=== PATIENT | female | born 1960 | race African-American/Black ===

== ENCOUNTER 2017-01-29 22:53 | Emergency (ER) | payer OTHER ==
[2017-01-29 23:18] VITALS: BP 99/61; PULSE 110; TEMP 9807; BMI 23.9
--- NOTE | 2017-01-29 23:20 | PDOC ---
History of Present Illness - General History Source: EMS, Longterm Records Exam Limitations: Clinical Condition - History of Present Illness Initial Comments: 01/29/17 23:47 The patient is a 56-year-old female BIB EMS from [facility] with a significant past medical history of MR, COPD, HTN, DIC, CVA with right-sided hemiparesis, dysphagia, aphasia, GI bleed and seizures, who presents to the emergency department with a broken trach and spontaneous respiratory distress onset today. The patient is nonverbal and unable to ambulate on baseline. The history is limited due to the patients condition. Information is obtained from longterm records and EMS. Allergies: NKDA Past Surgical History: Abdominal PEG tube <Tammi Hamilton - Last Filed: 01/29/17 23:47> <Shilpa Shaver - Last Filed: 01/31/17 03:47> - General Chief Complaint: Trach Tube Replacement Stated Complaint: RESPIRATORY DISTRESS Time Seen by Provider: 01/29/17 23:19 Past History <Tammi Hamilton - Last Filed: 01/29/17 23:47> - Past Medical History CVA: Yes (right sided hemiparesis, dysphagia, aphasia) COPD: Yes GI Disorders: Yes (GI bleeding) HTN: Yes HIV: (MENTAL RETARDATION.) Seizures: Yes - Surgical History Abdominal Surgery: Yes (peg tube) - Immunization History Td Vaccination: Yes TDAP Vaccination: Yes Immunization Up to Date: Yes - Psycho/Social/Smoking Cessation Hx Anxiety: No Suicidal Ideation: No Smoking Status: No Smoking History: Unknown if ever smoked Have you smoked in the past 12 months: No Number of Cigarettes Smoked Daily: 0 Cigars Per Day: 0 Information on smoking cessation initiated: No Hx Alcohol Use: No Drug/Substance Use Hx: No Substance Use Type: None Hx Substance Use Treatment: (unknown) <Shilpa Shaver - Last Filed: 01/31/17 03:47> - Past Medical History Allergies/Adverse Reactions: Allergies Allergy/AdvReac Type Severity Reaction Status Date / Time No Known Allergies Allergy Verified 01/29/17 22:57 Home Medications: Ambulatory Orders Aspirin 81 mg GT DAILY 06/03/15 Gabapentin [Neurontin -] 300 mg GT Q8H 06/03/15 Omeprazole [Prilosec (RX)] 40 mg GT DAILY 06/03/15 Prednisone 10 mg GT Q48H 06/03/15 Heparin - 5,000 unit SQ BID vial 06/06/15 Levetiracetam [Keppra Oral Solution -] 500 mg GT BID cup 06/06/15 Albuterol 2.5/Ipratropium 0.5 [Duoneb -] 1 neb IH QID 11/04/15 Hypromellose 0.5% Opth Soln [Artificial Tears] 1 drop OU BID 11/04/15 Lactobacillus Acidophilus [Bacid -] 1 each GT DAILY 11/04/15 Review of Systems - Review of Systems Able to Perform ROS?: No (patient's condition) <Tammi Hamilton - Last Filed: 01/29/17 23:47> *Physical Exam - Vital Signs Last Vital Signs Temp Pulse Resp BP Pulse Ox 9807 F H 110 H 16 99/61 100 01/29/17 22:57 01/29/17 22:57 01/29/17 22:57 01/29/17 22:57 01/29/17 23:28 - Physical Exam Comments: 01/29/17 23:48 GENERAL: Well developed. (+) Afebrile. HEAD: Normocephalic, atraumatic. EENT: (+) Broken trach. PERRLA, EOMI. No conjunctival pallor. Sclera are non-icteric. Moist mucous membranes. Oropharynx is clear. NECK: Supple. Full ROM. No JVD. Carotid pulses 2+ and symmetric, without bruits. No thyromegaly. No lymphadenopathy. CARDIOVASCULAR: Regular rate and rhythm. No murmurs, rubs, or gallops. Distal pulses are 2+ and symmetric. PULMONARY: (+) Oxygen is fine. No evidence of respiratory distress. No wheezing, rales or rhonchi. ABDOMINAL: (+) PEG tube. Soft. Non-tender. Non-distended. No rebound or guarding. No organomegaly. MUSCULOSKELETAL No CVA tenderness. EXTREMITIES: No cyanosis. No clubbing. No edema. No calf tenderness. SKIN: Warm and dry. Normal capillary refill. No rashes. No jaundice. <Tammi Hamilton - Last Filed: 01/29/17 23:47> - Vital Signs Last Vital Signs Temp Pulse Resp BP Pulse Ox 9807 F H 110 H 16 99/61 100 01/29/17 22:57 01/29/17 22:57 01/29/17 22:57 01/29/17 22:57 01/29/17 22:57 <Shilpa Shaver - Last Filed: 01/31/17 03:47> Procedures - Additional Procedures Additional Procedures: other, tracheostomy (tracheostomy replacement) <Shilpa Shaver - Last Filed: 01/31/17 03:47> Medical Decision Making - Medical Decision Making 01/31/17 03:45 Pt comes with a broken and nonfunctioning tracheostomy tube. Pt's tube was replaced over a flexible stylet. Pt was seen by the resp therapist and CXR demonstrates a clear chest. Pt will return to the [place] from where she came. <Shilpa Shaver - Last Filed: 01/31/17 03:47> *DC/Admit/Observation/Transfer - Attestations Scribe Attestion: 01/29/17 23:50 Documentation prepared by Tammi Hamilton, acting as medical apparatus model maker for Shilpa Shaver MD. <Tammi Hamilton - Last Filed: 01/29/17 23:47> <Shilpa Shaver - Last Filed: 01/31/17 03:47> Diagnosis at time of Disposition: Tracheostomy complication - Discharge Dispostion Disposition: [facility] Condition at time of disposition: Stable - Patient Instructions Printed Discharge Instructions: How to Take Care of a Tracheostomy
== END 2017-01-30 01:01 ==
LOC: JER 22:53
DX: J95.03 Malfunction of tracheostomy stoma (principal); F79 Unspecified intellectual disabilities; D65 Disseminated intravascular coagulation [defibrination syndrome]; I10 Essential (primary) hypertension; I69.820 Aphasia following other cerebrovascular disease; I69.821 Dysphasia following other cerebrovascular disease; I69.851 Hemiplegia and hemiparesis following other cerebrovascular disease affecting right dominant side; G40.909 Epilepsy, unspecified, not intractable, without status epilepticus; K92.2 Gastrointestinal hemorrhage, unspecified
CPT/HCPCS: 71010-TC; 99281-25

== ENCOUNTER → 2017-06-20 | Emergency (ER) | payer OTHER ==
[~2017-06-20] MED LIST: ADENOSINE 6 MG/2 ML VIAL IVPUSH ONE; ATROPINE SULFATE 1 MG/10 ML DISP.SYRIN IVPUSH ONE; EPINEPHrine 1:1,000 1 MG/1 ML - 30ML VIAL (INJECTION) IV ONE; INSULIN REGULAR HUMAN 100 UNITS/ML *VIAL IVPUSH ONE; NOREPINEPHRINE BITARTRATE 4 MG/4 ML ML IV ONE; SODIUM BICARBONATE 8.4% 50 MEQ/50 ML DISP.SYRIN IVPUSH ONE; SODIUM CHLORIDE 1,000 ML IV STA
[2017-06-20 10:12] LABS: ARTERIAL BLOOD GAS PO2 58.7 mmHg (80-100)
[2017-06-20 10:13] LABS: ARTERIAL BLOOD GAS HCO3 16.2 meq/L (22-26)
[2017-06-20 10:14] LABS: LPM/O2% 100; PT. ON O2? YES; TYPE OF O2 AMBU
[2017-06-20 10:16] LABS: ARTERIAL BLOOD GAS pH 6.96 (7.35-7.45)
[2017-06-20 10:17] LABS: ARTERIAL BLD GAS O2 SATURATION 64.8 % (90-98.9); ARTERIAL BLOOD GAS BASE EXCESS -15.8 meq/l (-2-2)
--- NOTE | 2017-06-20 10:27 | PDOC ---
History of Present Illness - General Stated Complaint: CARDIAC ARREST Time Seen by Provider: 06/20/17 10:18 - History of Present Illness Initial Comments: 06/20/17 11:15 Ms. Maldonado is a 57 yo female with a PMH of COPD, GERD, Enterocolitis, Feeding tube, Osteomyelitis, brought in by EMS from [facility] after her tracheostomy tube was noticed to be displaced. EMS intubated on scene and initially had pulses but reported losing pulse en route. On presentation patient was intubated with compressions and Bag valve mask ventilation in progress. EMS was unable to place IV. On presentation intubation tube was confirmed in place and an IV was placed in the right foot. V-tach was noted immediately and 2 cardioversions were administered. Cardioversion returned normal rhythm but no appreciable pulse. Per ACLS protocol 5 round of epinephrine, 2 amps of bicarb and atropine were used in order to attempt ROSC for PEA. Patient was unable to be revived. Time of 10:10. Past History - Past Medical History Allergies/Adverse Reactions: Allergies Allergy/AdvReac Type Severity Reaction Status Date / Time No Known Allergies Allergy Verified 06/20/17 10:22 Home Medications: Ambulatory Orders Aspirin 81 mg GT DAILY 06/03/15 Gabapentin [Neurontin -] 300 mg GT Q8H 06/03/15 Prednisone 10 mg GT Q48H 06/03/15 Levetiracetam [Keppra Oral Solution -] 500 mg GT BID cup 06/06/15 Albuterol 2.5/Ipratropium 0.5 [Duoneb -] 1 neb IH Q6H 11/04/15 Lactobacillus Acidophilus [Bacid -] 1 each GT DAILY 11/04/15 Aa/Hydrolyzed Collagen, Whey [Lps Neutral Flavor Liquid] 30 ml GT DAILY Acetaminophen [Pain Relief] 650 mg GT ASDIR 06/20/17 Acetaminophen [Pain Relief] 650 mg GT Q8H PRN 06/20/17 Eyelid Cleanser Comb No.7 [Ocusoft Lid Scrub] 1 each TP DAILY 06/20/17 Heparin - 5,000 unit SQ Q12H 06/20/17 Hypromellose 0.5% Opth Soln [Artificial Tears] 1 drop OU BID 06/20/17 Lactose-Reduced Food/Fiber [Isosource 1.5 Fausto Liquid] 2,000 ml GT 1800 09/25/17 Multivit-Minerals/Ferrous Fum [Multivitamin Liquid] 30 ml GT DAILY 06/20/17 Ranitidine HCl 10 mg GT HS 06/20/17 CVA: Yes (right sided hemiparesis, dysphagia, aphasia) COPD: Yes GI Disorders: Yes (GI bleeding) HTN: Yes Seizures: Yes - Surgical History Abdominal Surgery: Yes (peg tube) - Immunization History Td Vaccination: Yes TDAP Vaccination: Yes Immunization Up to Date: Yes - Suicide/Smoking/Psychosocial Hx Smoking Status: No Smoking History: Unknown if ever smoked Have you smoked in the past 12 months: No Number of Cigarettes Smoked Daily: 0 Cigars Per Day: 0 Information on smoking cessation initiated: No Hx Alcohol Use: No Drug/Substance Use Hx: No Substance Use Type: None Hx Substance Use Treatment: (unknown) Review of Systems - Review of Systems Comments:: 06/20/17 11:34 Unable to perform *Physical Exam - Vital Signs Last Vital Signs Temp Pulse Resp BP Pulse Ox 0 L 18 0/0 0 L 06/20/17 09:29 06/20/17 09:29 06/20/17 09:29 06/20/17 09:29 - Physical Exam Comments: 06/20/17 11:34 GENERAL: Patient presented in acute distress. Non-responsive, BVM respirations with active CPR. HEAD: No signs of trauma, normocephalic, atraumatic ENT: Tracheostomy site noted without tube in place. LUNGS: Lungs rising bilaterally with BVM ventilation. HEART: Sinus tachy to PEA after 2 cardioversion rounds. ABDOMEN: Grossly distended with G-tube appreciated. EXTREMITIES: IV in Right foot NEUROLOGICAL:Unable to assess SKIN: Warm, Dry, normal turgor, no rashes or lesions noted. ED Treatment Course - LABORATORY CBC & Chemistry Diagram: 06/20/17 10:20 06/20/17 10:20 - ADDITIONAL ORDERS Additional order review: Laboratory Results 06/20/17 10:00 Puncture Site Md puncture ABG pH 6.96 L* D ABG pCO2 at Pt Temp 75.2 H* D ABG pO2 at Pt Temp 58.7 L D ABG HCO3 16.2 L ABG O2 Sat (Measured) 64.8 L* ABG O2 Content 8.5 L* ABG Base Excess -15.8 L* Everardo Test Not applicable O2 Delivery Device Ambu Oxygen Flow Rate 100 PEEP 0.0 Medical Decision Making - Medical Decision Making 06/20/17 11:48 57 yo female developed respiratory distress when her tracheostomy tube became dislodged. Staff was unable to manipulate it at the [place], 911 was called and medics intubated her on arrival. Enroute to the hospital, patient lost her pulse and CPR with BVM was intiated. Full ACLS protocols were followed and resuscitation efforts went on for roughly 4O minutes after the patient arrived in ED. Patient remained in PED despite our heroic efforts and she was ultimately pronounced at 10:10 AM. 06/20/17 11:53 I did speak with Dr. Pepper, He will sign the certificate. *DC/Admit/Observation/Transfer Diagnosis at time of Disposition: Respiratory failure Qualifiers: Chronicity: acute Respiratory failure complication: hypoxia and hypercapnia Qualified Code(s): J96.01 - Acute respiratory failure with hypoxia - Discharge Dispostion Disposition: - Referrals Referrals: Rajesh White MD [Primary Care Provider] -
[2017-06-20 10:32] VITALS: BP 0/0; PULSE 0; BMI 26.5
--- NOTE | 2017-06-20 10:34 | PDOC ---
Attending Attestation - Resident Resident Name: Isiah Marshall - ED Attending Attestation I have performed the following: I have examined & evaluated the patient, The case was reviewed & discussed with the resident, I agree w/resident's findings & plan, Exceptions are as noted - HPI HPI: 06/20/17 10:27 Full Arrest by Squad, Intubted in field TRACH dislodged could not be replaced, squad intubated on arrival Lost pulse in the field CPR in progress - Physicial Exam PE: 06/20/17 10:35 Pulseless, No Signs of Life, Asystole on monitor on arrival - Medical Decision Making 06/20/17 10:[address] Marshall's assessment and plan.
[2017-06-20 11:27] LABS: ALBUMIN 1.9 g/dl (3.4-5.0); ANION GAP 15 (8-16); BILIRUBIN,TOTAL 0.3 mg/dL (0.2-1.0); CO2 12 mmol/L (21-32); CREATININE 0.8 mg/dL (0.55-1.02); SGPT/ALT 31 U/L (12-78)
[2017-06-20 11:28] LABS: ALK PHOS 138 U/L (45-117)
[2017-06-20 11:38] LABS: SGOT/AST 61 U/L (15-37)
[2017-06-20 11:47] LABS: CALCIUM 16.4 mg/dL (8.5-10.1); GLUCOSE,RANDOM 440 mg/dL (74-106)
== END | disposition expired ==
LOC: JER 09:29
PROC: 5A02210 Assistance with Cardiac Output using Balloon Pump, Continuous (ICD-10-PCS; principal; 2017-06-20)
PROC: 3E033VG Introduction of Insulin into Peripheral Vein, Percutaneous Approach (ICD-10-PCS; 2017-06-20)
DX: I46.8 Cardiac arrest due to other underlying condition (principal); J96.01 Acute respiratory failure with hypoxia; J44.9 Chronic obstructive pulmonary disease, unspecified; K21.9 Gastro-esophageal reflux disease without esophagitis; M86.9 Osteomyelitis, unspecified; G40.909 Epilepsy, unspecified, not intractable, without status epilepticus; I69.351 Hemiplegia and hemiparesis following cerebral infarction affecting right dominant side; I69.320 Aphasia following cerebral infarction; I69.321 Dysphasia following cerebral infarction; I10 Essential (primary) hypertension; J95.09 Other tracheostomy complication; Z93.1 Gastrostomy status
CPT/HCPCS: 36415; 36600; 80053; 82803; 83605; 92950; 96360; 96374; 99283-25